=== PATIENT | female | born 1960 | race American Indian/Alaskan Native ===

== ENCOUNTER 2017-12-11 10:37 | Day surgery (SDC) | payer MEDICARE ==
[2017-12-02 10:16] VITALS: BMI 31.1
[2017-12-11] MEDS ORDERED: Midazolam 2 MG/2 ML VIAL ONE (14:30)
[2017-12-11] MEDS ORDERED: Propofol 10 mg/ml Inj (20 ML) ONE (14:30)
[2017-12-11] MEDS ORDERED: Bupivacaine 0.25% 20 ML INJ IJ ONE (14:40)
[2017-12-11] MEDS ORDERED: Lidocaine/Epinephrine 1% 1:100000 10 ML IJ ONE (14:41)
[2017-12-11] MEDS ORDERED: ceFAZolin IV 2 gm in Dextrose 2 GM/50 ML BAG IVPB ONE (14:41)
--- NOTE | 2017-12-11 15:55 | MAM ---
Date of service: 12/11/2017 PROCEDURE: Needle localization HISTORY: LEFT BREAST NEEDLE LOCALIZATION COMPARISON: 09/25/2017 diagnostic mammogram TECHNIQUE: Informed consent obtained Time-out procedure performed. Sterile technique utilized. 7.5 cm hookwire combination inserted into the left breast at the site of the micro clip from prior stereotactic core biopsy. FINDINGS: Confirmation that the specimen contains the micro clip and hookwire combination. IMPRESSION: Successful needle localization procedure confirmation that the excised specimen contains the micro clip and hookwire Communication of results: I discussed findings directly with the attending surgeon (Dr. Hernandes) At 15:44.
--- NOTE | 2017-12-11 16:00 | PCM.SURG1 ---
Surgeon's Initial Post Op Note - Surgeon's Notes Surgeon: Dr. De Los Santos Signs And Displays Salesperson: Dr. Kang PGY3, Suman MS3 Type of Anesthesia: General Endo Pre-Operative Diagnosis: Atypical Ductal Hyperplasia Operative Findings: See operative dictation Post-Operative Diagnosis: Same Operation Performed: Left breast lumpectomy Specimen/Specimens Removed: Left breast needle localized tissue Estimated Blood Loss: EBL {In ML}: 2 Blood Products Given: N/A Drains Used: No Drains Post-Op Condition: Good Date of Surgery/Procedure: 12/11/17 Time of Surgery/Procedure: 16:00
[2017-12-11] MEDS ORDERED: HYDROmorphone 0.5 mg/0.5 ml ISec IVP PRN (16:03)
[2017-12-11] MEDS ORDERED: Lactated Ringer's 1,000 ML IV SCH (16:15)
[2017-12-11] MEDS ORDERED: Lactated Ringer's 500 ML IV ONE (17:20)
[2017-12-11 18:10] VITALS: RESP 18; O2SAT 97
[2017-12-11 18:26] VITALS: BP 92/58; PULSE 74; TEMP 97.7
--- NOTE | 2017-12-12 03:50 | OP ---
PROCEDURE DATE: 12/11/2017 PREOPERATIVE DIAGNOSIS: Left breast atypical ductal hyperplasia. POSTOPERATIVE DIAGNOSIS: Left breast atypical ductal hyperplasia. PROCEDURES DONE: Preoperative needle localization and left breast lumpectomy. SURGEON: Shahbaz De Los Santos MD CHEMICAL LIBRARIAN: Michael Kang DO, PGY-2 resident ANESTHESIA: General endotracheal tube anesthesia. ESTIMATED BLOOD LOSS: Around 10 mL. DRAINS: None. PATHOLOGY: The left breast lumpectomy specimen was sent, and the medial margin was also sent separately. COMPLICATIONS: None. INTRAOPERATIVE FINDINGS: The patient had a left medial upper quadrant needle placement. DESCRIPTION OF PROCEDURE: On intraoperative steps, this is a 57-year-old female who was diagnosed with left breast atypical ductal hyperplasia. After consenting the patient and after preop needle localization, the patient was brought to the OR, placed supine on the operating table. After induction of the anesthesia, the left breast was prepped and draped in the usual sterile fashion. A curvilinear incision was made. Upper and lower as well as lateral and medial dissection was done. The breast quadrant was completely excised up to the pectoral fascia, and lumpectomy specimen was sent off the table for the pathology. The intraoperative confirmation was taken from the Radiology for complete removal of the clip as well as the wire. After that, the wound was irrigated. The wound was closed in two layers, subcutaneous with a 2-0 Vicryl and skin with 4-0 Monocryl. The patient was extubated in the OR, sent to the postanesthesia care unit in stable condition. There was no apparent complication. Sahhbaz De Los Santos MD
== END 2017-12-11 18:30 | disposition home or self-care (01) ==
LOC: C.SDS 10:37
PROVIDERS: ATTEND Surgery Surgical Critical Care
DX: N60.92 Unspecified benign mammary dysplasia of left breast (principal)
CPT/HCPCS: 19281; 19301; 88307; J0690; J1100; J1170; J2250; J2704; J3010; J7120